=== PATIENT | male | born 1985 | race African-American/Black ===

== ENCOUNTER 2025-01-25 02:24 | Emergency (ER) | payer OTHER ==
[~2025-01-25] VITALS: Ht 167.6 cm; Wt 74.0 kg
[~2025-01-25 02:24] MED LIST: ALBUTEROL
[2025-01-25 02:28] VITALS: O2SAT 98
[2025-01-25 03:48] LABS: HEMATOCRIT. 43.6 % (42.0-52.0); HEMOGLOBIN. 14.3 g/dL (14.0-18.0); MEAN CORPUSCULAR HEMOGLOBIN 29.6 pg (28.0-32.0); MEAN CORPUSCULAR HGB CONC 32.9 g/dL (31.0-37.0); MEAN PLATELET VOLUME 8.2 fl (7.4-10.4); PLATELET 365 x1000/uL (130-400); RED BLOOD CELL COUNT 4.84 mill/uL (4.7-6.1); RED CELL DISTRIBUTION WIDTH 14.9 % (11.6-14.6); WHITE BLOOD COUNT 26.7 x1000/uL (4.5-11.0)
[2025-01-25 03:53] LABS: DIFFERENTIAL COMMENT 1
[2025-01-25 03:59] LABS: CHLORIDE 100 mEq/L (98-107); POTASSIUM 3.7 mEq/L (3.5-5.1); SODIUM 139 mEq/L (136-145)
[2025-01-25 04:00] LABS: CALCIUM 10.2 mg/dL (8.7-10.4); CARBON DIOXIDE 23 mEq/L (21-32)
[2025-01-25 04:05] LABS: GLUCOSE 106 mg/dL (70-105); UREA NITROGEN BLOOD 24 mg/dL (9-23)
[2025-01-25 04:06] LABS: ALANINE AMINOTRANSFERASE 13 IU/L (10-49); ASPARTATE AMINOTRANSFERASE 27 IU/L (<34)
[2025-01-25 04:07] LABS: ACETAMINOPHEN < 2 ug/mL (10-30); ALBUMIN 4.9 g/dL (3.2-4.8); BILIRUBIN DIRECT 0.3 mg/dL (<=3.0); CREATINE KINASE 1167 IU/L (46-171)
[2025-01-25 04:08] LABS: BILIRUBIN TOTAL 0.8 mg/dL (0.1-1.0); PROTEIN TOTAL 8.2 g/dL (6.0-8.3)
[2025-01-25 04:11] LABS: PLATELET ESTIMATE NORMAL
[2025-01-25 04:25] LABS: ETHANOL BLOOD < 10 mg/dL (<10)
[2025-01-25 05:05] LABS: CLARITY URINE TURBID (CLEAR); COLOR URINE DARK YELLOW (YELLOW); GLUCOSE URINE NEGATIVE (NEGATIVE); KETONES URINE 1+ (NEGATIVE); LEUKOCYTE ESTERASE URINE TRACE (NEGATIVE); NITRITE URINE NEGATIVE (NEGATIVE); OCCULT BLOOD URINE 1+ (NEGATIVE); PROTEIN URINE 3+ (NEGATIVE); SPECIFIC GRAVITY URINE 1.023 (1.005-1.030)
[2025-01-25] MEDS: LORAZEPAM 2MG/ML INJ IM NR (05:07)
[2025-01-25] MEDS: HALOPERIDOL LACTATE 5MG/ML VIAL IM NR (05:07)
[2025-01-25] MEDS: SODIUM CHLORIDE 0.9% 1,000 ML IV ONE ×2 (05:08→05:09)
[2025-01-25] MEDS: MORPHINE SULFATE 2 MG/ML INJ (NOT FOR IM USE) IV NR (05:12)
[2025-01-25 05:13] LABS: PHOSPHORUS 2.8 mg/dL (2.5-4.9)
[2025-01-25 05:27] LABS: COARSE GRANULAR CASTS URINE 0-5 /lpf; FINE GRANULAR CASTS URINE 0-5 /lpf
[2025-01-25 05:29] LABS: BACTERIA URINE 3+; CALCIUM OXALATE CRYSTALS URINE 1+ /lpf; RBC URINE 0-2 /hpf (0-2)
[2025-01-25 05:31] LABS: SQUAMOUS EPITHELIAL CELL URINE 1+ /lpf (RARE/1+)
[2025-01-25 05:34] LABS: *AMPHETAMINES SCREEN URINE PRESUMPTIVE POSITIVE (NEGATIVE); *BARBITURATES SCREEN URINE NEGATIVE (NEGATIVE); *BENZODIAZEPINES SCREEN URINE NEGATIVE (NEGATIVE); *COCAINE SCREEN URINE PRESUMPTIVE POSITIVE (NEGATIVE); CANNABINOID URINE SCREEN PRESUMPTIVE POSITIVE (NEGATIVE); ECSTASY MDMA SCREEN URINE CONF.TEST INDICATED (NEGATIVE); METHADONE URINE SCREEN NEGATIVE (NEGATIVE); OPIATES URINE SCREEN NEGATIVE (NEGATIVE); PHENCYCLIDINE URINE SCREEN NEGATIVE (NEGATIVE)
[2025-01-25 08:00] VITALS: BP 102/67; PULSE 107; RESP 18; TEMP 36.6; O2SAT 100
[2025-01-25] MEDS ORDERED: ONDANSETRON HCL 4MG/2ML INJ IV PRN (08:45)
[2025-01-25] MEDS ORDERED: ACETAMINOPHEN 325MG TABLET PO PRN (08:45)
[2025-01-25] MEDS ORDERED: SODIUM CHLORIDE 0.9% 1,000 ML IV SCH (08:45)
[2025-01-25] MEDS ORDERED: CEFTRIAXONE 1GM/50ML 50 ML IV SCH (08:45)
== END 2025-01-25 08:04 | disposition short-term general hospital (02) ==
LOC: ER 02:24
DX: E86.0 Dehydration (principal); N17.9 Acute kidney failure, unspecified; M62.82 Rhabdomyolysis; F14.10 Cocaine abuse, uncomplicated; F15.10 Other stimulant abuse, uncomplicated; J45.909 Unspecified asthma, uncomplicated
CPT/HCPCS: 80076; 80305; 80048; 81003; 80307; 80329; 80320; 82550; 83735; 84100; 85025; 87086; 36415; 74176; 96361; 96372; 96374; 99285; J1630; J2060; J2270; J7030; G0480